=== PATIENT | female | born 1990 | race Two or more races ===

== ENCOUNTER → 2022-04-03 | Outpatient (CLI) | payer BC ==
[2022-04-03 10:37] LABS: Basophils # (auto) 0 10 ^3/uL (0-0.2); Basophils % (auto) 0.3 % (0.0-2.0); Eosinophils # (auto) 0.1 10 ^3/uL (0-0.8); Eosinophils % (auto) 1.4 % (0.0-7.0); Hematocrit 38.6 % (36.0-46.0); Hemoglobin 12.9 g/dL (12.2-16.2); Lymphocytes % (auto) 27.1 % (10.0-50.0); Mean Corpuscular Hemoglobin 29.2 pg (28.0-32.0); Mean Corpuscular Hgb Conc. 33.3 g/dL (32.0-36.0); Mean Corpuscular Volume 87.5 fL (80.0-100.0); Monocytes # (auto) 0.3 10 ^3/uL (0-1.3); Monocytes % (auto) 4.3 % (0.0-12.0); Neutrophils # (auto) 4.9 10 ^3/uL (1.6-8.6); Neutrophils % (auto) 66.9 % (37.0-80.0); Red Blood Cells 4.41 10^6/uL (4.0-5.20); Red Cell Distribution Width 14.7 % (11.8-14.3); White Blood Cell 7.3 10^3/uL (4.4-10.8)
[2022-04-03 10:55] LABS: Amphetamine Screen, Urine NEGATIVE (NEGATIVE); Barbiturate Scree,Urine NEGATIVE (NEGATIVE); Benzodiazephine Screen, Urine NEGATIVE (NEGATIVE); Cannabinoid Screen, Urine POSITIVE (NEGATIVE); Cocaine Screen, Urine NEGATIVE (NEGATIVE); Opiate Scree,Urine NEGATIVE (NEGATIVE); Phencyclidine Screen, Urine NEGATIVE (NEGATIVE)
[2022-04-04 07:06] LABS: RPR Non Reactive (Non Reactive)
== END | disposition home or self-care (01) ==
LOC: LAB 09:54
PROVIDERS: ATTEND Obstetrics & Gynecology Obstetrics
DX: Z34.80 Encounter for supervision of other normal pregnancy, unspecified trimester (principal); Z31.430 Encounter of female for testing for genetic disease carrier status for procreative management; Z36.0 Encounter for antenatal screening for chromosomal anomalies; N39.0 Urinary tract infection, site not specified
CPT/HCPCS: 36415; 80307; 83036; 84112; 84144; 84702; 85025; 86592; 86703; 86762; 86850; 86900; 86901; 87086; 87340

== ENCOUNTER → 2022-07-15 | Outpatient (CLI) | payer BC ==
[2022-07-15 07:50] LABS: Basophils # (auto) 0 10 ^3/uL (0-0.2); Basophils % (auto) 0.3 % (0.0-2.0); Eosinophils # (auto) 0.1 10 ^3/uL (0-0.8); Eosinophils % (auto) 0.7 % (0.0-7.0); Hematocrit 36.1 % (36.0-46.0); Hemoglobin 11.8 g/dL (12.2-16.2); Lymphocytes # (auto) 1.7 10 ^3/uL (0.4-5.4); Lymphocytes % (auto) 16.9 % (10.0-50.0); Mean Corpuscular Hemoglobin 29.2 pg (28.0-32.0); Mean Corpuscular Hgb Conc. 32.8 g/dL (32.0-36.0); Monocytes # (auto) 0.6 10 ^3/uL (0-1.3); Monocytes % (auto) 5.5 % (0.0-12.0); Neutrophils # (auto) 7.7 10 ^3/uL (1.6-8.6); Neutrophils % (auto) 76.6 % (37.0-80.0); Nucleated Red Blood Cells % 0.1 %; Red Blood Cells 4.05 10^6/uL (4.0-5.20); Red Cell Distribution Width 13.3 % (11.8-14.3); White Blood Cell 10.1 10^3/uL (4.4-10.8)
== END | disposition home or self-care (01) ==
LOC: LAB 07:22
PROVIDERS: ATTEND Obstetrics & Gynecology Obstetrics
DX: O99.810 Abnormal glucose complicating pregnancy (principal); Z3A.00 Weeks of gestation of pregnancy not specified
CPT/HCPCS: 36415; 82951; 85025

== ENCOUNTER → 2022-10-06 | Outpatient (CLI) | payer OTHER ==
[2022-10-06 11:25] LABS: Basophils # (auto) 0 10 ^3/uL (0-0.2); Basophils % (auto) 0.2 % (0.0-2.0); Eosinophils # (auto) 0.1 10 ^3/uL (0-0.8); Hematocrit 34.7 % (36.0-46.0); Hemoglobin 11.9 g/dL (12.2-16.2); Lymphocytes # (auto) 2.2 10 ^3/uL (0.4-5.4); Lymphocytes % (auto) 26.8 % (10.0-50.0); Mean Corpuscular Hemoglobin 29.7 pg (28.0-32.0); Mean Corpuscular Hgb Conc. 34.3 g/dL (32.0-36.0); Mean Corpuscular Volume 86.5 fL (80.0-100.0); Monocytes # (auto) 0.4 10 ^3/uL (0-1.3); Monocytes % (auto) 5.1 % (0.0-12.0); Neutrophils # (auto) 5.5 10 ^3/uL (1.6-8.6); Neutrophils % (auto) 66.9 % (37.0-80.0); Red Blood Cells 4.01 10^6/uL (4.0-5.20); Red Cell Distribution Width 14.5 % (11.8-14.3); White Blood Cell 8.3 10^3/uL (4.4-10.8)
[2022-10-07 08:06] LABS: RPR Non Reactive (Non Reactive)
== END | disposition home or self-care (01) ==
LOC: LAB 11:12
PROVIDERS: ATTEND Obstetrics & Gynecology
DX: Z34.80 Encounter for supervision of other normal pregnancy, unspecified trimester (principal); Z3A.00 Weeks of gestation of pregnancy not specified
CPT/HCPCS: 36415; 84112; 85025; 86592

== ENCOUNTER 2022-10-10 11:47 | Observation (INO) | payer OTHER ==
[2022-10-10] MEDS ORDERED: PREN-96 PO (12:47)
== END 2022-10-10 13:22 | disposition home or self-care (01) ==
LOC: LDRP 11:47
PROVIDERS: ADMIT Obstetrics & Gynecology; ATTEND Obstetrics & Gynecology
DX: O24.419 Gestational diabetes mellitus in pregnancy, unspecified control (principal); Z3A.37 37 weeks gestation of pregnancy
CPT/HCPCS: 59025; 81002; 82962; G0378

== ENCOUNTER 2022-10-15 09:22 | Observation (INO) | payer OTHER ==
[~2022-10-15 09:22] MED LIST: PREN-96 PO
[2022-10-15] MEDS ORDERED: METF-370 PO (10:32)
== END 2022-10-15 10:47 | disposition home or self-care (01) ==
LOC: UNDOADMOB 09:22 → LDRP 09:22
PROVIDERS: ADMIT Obstetrics & Gynecology; ATTEND Obstetrics & Gynecology
DX: O24.415 Gestational diabetes mellitus in pregnancy, controlled by oral hypoglycemic drugs (principal); O26.893 Other specified pregnancy related conditions, third trimester; R10.2 Pelvic and perineal pain; Z3A.38 38 weeks gestation of pregnancy; Z79.84 Long term (current) use of oral hypoglycemic drugs
CPT/HCPCS: 59025; 76818; 81002; 82948; 82962; 94760; G0378

== ENCOUNTER 2022-10-20 08:55 | Observation (INO) | payer OTHER ==
[~2022-10-20 08:55] MED LIST changes: +METF-370 PO
== END 2022-10-20 12:13 | disposition home or self-care (01) ==
LOC: UNDOADMOB 10:42 → LDRP 10:42
PROVIDERS: ADMIT Obstetrics & Gynecology; ATTEND Obstetrics & Gynecology
DX: O24.415 Gestational diabetes mellitus in pregnancy, controlled by oral hypoglycemic drugs (principal); Z79.84 Long term (current) use of oral hypoglycemic drugs; Z3A.39 39 weeks gestation of pregnancy
CPT/HCPCS: 59025; 76818; 81002; 82948; 82962; G0378

== ENCOUNTER 2022-10-23 07:43 | Inpatient (IN) | payer OTHER ==
[~2022-10-23] VITALS: Ht 170.2 cm; Wt 117.5 kg
[2022-10-23] MEDS ORDERED: PROMETHAZINE HCL 25 MG/ML 1ML IV PRN (10:45)
[2022-10-23] MEDS ORDERED: miSOPROStol 50 MCG per PRE-CUT 1/2 TAB PO PRN (10:45)
[2022-10-23] MEDS ORDERED: WITCH HAZEL-GLYCERIN PAD TOP PRN (10:45)
[2022-10-23] MEDS ORDERED: BUTORPHANOL TARTRATE 2 MG/1 ML VIAL IV PRN ×2 (10:45)
[2022-10-23] MEDS ORDERED: DERMOPLAST 60ML BOTTLE TOP PRN (10:45)
[2022-10-23] MEDS ORDERED: PHISODERM TOP SOLN 240ML BTL TOP PRN (10:45)
[2022-10-23] MEDS ORDERED: LIDOCAINE 2%HCL (LOCAL ANESTH.) INJ 20ML MDV IJ PRN (10:45)
[2022-10-23 11:16] LABS: Basophils # (auto) 0 10 ^3/uL (0-0.2); Basophils % (auto) 0.3 % (0.0-2.0); Eosinophils # (auto) 0.1 10 ^3/uL (0-0.8); Eosinophils % (auto) 1.1 % (0.0-7.0); Hematocrit 34.9 % (36.0-46.0); Lymphocytes % (auto) 26.3 % (10.0-50.0); Mean Corpuscular Hemoglobin 29.9 pg (28.0-32.0); Mean Corpuscular Hgb Conc. 34.3 g/dL (32.0-36.0); Mean Corpuscular Volume 86.9 fL (80.0-100.0); Monocytes # (auto) 0.3 10 ^3/uL (0-1.3); Monocytes % (auto) 4.2 % (0.0-12.0); Neutrophils # (auto) 5.1 10 ^3/uL (1.6-8.6); Neutrophils % (auto) 68.1 % (37.0-80.0); Red Blood Cells 4.02 10^6/uL (4.0-5.20); Red Cell Distribution Width 14.9 % (11.8-14.3); White Blood Cell 7.6 10^3/uL (4.4-10.8)
[2022-10-23 11:21] LABS: Urine Bacteria NONE SEEN /hpf (None Seen); Urine Blood Negative /uL (Negative); Urine Specific Gravity 1.008 (1.001-1.035); Urine WBC 12 /hpf (0 - 5)
[2022-10-23 11:23] LABS: INR 0.87 (0.9-1.15); Partial Thromboplastin Time 26.9 sec (24.6-33.4)
[2022-10-23 11:45] LABS: Alcohol, Urine < 3.0 mg/dL (0-10); Amphetamine Screen, Urine NEGATIVE (NEGATIVE); Barbiturate Scree,Urine NEGATIVE (NEGATIVE); Benzodiazephine Screen, Urine NEGATIVE (NEGATIVE); Cannabinoid Screen, Urine POSITIVE (NEGATIVE); Cocaine Screen, Urine NEGATIVE (NEGATIVE)
[2022-10-23] MEDS: LACTATED RINGER'S 1,000 ML IV SCH ×2 (11:45→20:19)
[2022-10-23 11:49] LABS: Potassium 3.8 mmol/L (3.5-5.1)
[2022-10-23 11:52] LABS: Opiate Scree,Urine NEGATIVE (NEGATIVE); Phencyclidine Screen, Urine NEGATIVE (NEGATIVE)
[2022-10-23] MEDS ORDERED: PENICILLIN G POT 5MIL/D5 50ML 50 ML IV ONE (12:00)
[2022-10-23 12:11] LABS: Albumin 2.8 g/dL (3.4-5.0); Bilirubin, Total 0.3 mg/dL (0.2-1.0); Calcium 8.6 mg/dL (8.5-10.1); Total Protein 7.1 g/dL (6.4-8.2)
[2022-10-23] MEDS ORDERED: ACCU-CHEK COMFORT CURVE STRIP VI SCH (13:00)
[2022-10-23] MEDS ORDERED: ePHEDrine SULFATE 50 MG/ML AMP IV ONE (15:45)
[2022-10-23] MEDS ORDERED: ROPIVACAINE HCL 200 ML EPI SCH ×2 (15:45→22:45)
[2022-10-23] MEDS ORDERED: NALOXONE HCL 0.4 MG/ML VIAL IV ONE (15:45)
[2022-10-23] MEDS ORDERED: LACTATED RINGER'S 1,000 ML IV ONE (15:45)
[2022-10-23] MEDS: PENICILLIN G POTASSIUM 2,500,000 UNITS in D5W 5% 50 ML IV SCH ×2 (16:19→20:19)
[2022-10-23] MEDS ORDERED: LACT. RINGERS/OXYTOCIN 20UNITS 500 ML IV ONE ×2 (18:00→18:30)
[2022-10-23] MEDS ORDERED: TERBUTALINE SULFATE 1 MG/ML 1ML VIAL SC PRN (18:00)
[2022-10-23] MEDS ORDERED: LACT. RINGERS/OXYTOCIN 20UNITS 1,000 ML IV SCH (18:00)
[2022-10-24] MEDS: PENICILLIN G POTASSIUM 2,500,000 UNITS in D5W 5% 50 ML IV SCH ×2
[2022-10-24] MEDS ORDERED: ceFAZolin 2 GM/D5W100ml 100 ML IV ONE
[2022-10-24] MEDS ORDERED: METHYLERGONOVINE MALEATE 0.2 MG/ML AMP IM ONE (00:05)
[2022-10-24] MEDS ORDERED: ceFAZolin 1GM/50ML 100 ML IV ONE (00:23)
[2022-10-24] MEDS: ceFAZolin 1GM/50ML 50 ML IV SCH ×4 (00:29→22:31)
[2022-10-24] MEDS ORDERED: ONDANSETRON ODT 4 MG TAB PO PRN (05:00)
[2022-10-24] MEDS ORDERED: ACETAMINOPHEN 325 MG TAB PO PRN (05:00)
[2022-10-24 06:07] LABS: RPR Non Reactive (Non Reactive)
[2022-10-24 07:30] VITALS: BP 117/68
[2022-10-24 11:30] VITALS: BP 133/67
[2022-10-24 15:30] VITALS: BP 104/51
[2022-10-24 19:00] VITALS: BP 136/76
[2022-10-24] MEDS ORDERED: DOCUSATE SOD 100 MG CAP PO SCH (22:00)
[2022-10-24 23:30] VITALS: BP 126/72
[2022-10-25] MEDS ORDERED: IBUPROFEN 800 MG TAB PO PRN (03:00)
[2022-10-25 03:09] VITALS: BP 96/51
[2022-10-25 07:03] VITALS: BP 133/74
== END 2022-10-25 01:11 | disposition home or self-care (01) | DRG 807 ==
LOC: LDRP 09:00 → OBSVTOIN 10:29 → LDRP 10:30
PROVIDERS: ADMIT Obstetrics & Gynecology; ATTEND Obstetrics & Gynecology
PROC: 10E0XZZ Delivery of Products of Conception, External Approach (ICD-10-PCS; principal; 2022-10-24)
PROC: 3E0R3BZ Introduction of Anesthetic Agent into Spinal Canal, Percutaneous Approach (ICD-10-PCS; 2022-10-24)
PROC: 00HU33Z Insertion of Infusion Device into Spinal Canal, Percutaneous Approach (ICD-10-PCS; 2022-10-24)
PROC: 10907ZC Drainage of Amniotic Fluid, Therapeutic from Products of Conception, Via Natural or Artificial Opening (ICD-10-PCS; 2022-10-24)
PROC: 3E0DXGC Introduction of Other Therapeutic Substance into Mouth and Pharynx, External Approach (ICD-10-PCS; 2022-10-24)
PROC: 0UQMXZZ Repair Vulva, External Approach (ICD-10-PCS; 2022-10-24)
DX: O24.425 Gestational diabetes mellitus in childbirth, controlled by oral hypoglycemic drugs (principal); Z37.0 Single live birth; O71.82 Other specified trauma to perineum and vulva; O99.824 Streptococcus B carrier state complicating childbirth; Z3A.39 39 weeks gestation of pregnancy; Z20.822 Contact with and (suspected) exposure to COVID-19
CPT/HCPCS: 36415; 59025; 59409; 62282; 76818; 80053; 80307; 81001; 81002; 82948; 82962; 85025; 85610; 85730; 86592; 86762; 86850; 86900; 86901; 87340; 87426; 94760; 96360; 96361; 96365; 96372; G0378; J0690; J2540; J2590; J7060

== ENCOUNTER → 2024-09-27 | Outpatient (CLI) | payer SELFPAY | END | disposition home or self-care (01) | LOC: LAB 09:55 | PROVIDERS: ATTEND Obstetrics & Gynecology | DX: O23.40 Unspecified infection of urinary tract in pregnancy, unspecified trimester (principal); Z36.0 Encounter for antenatal screening for chromosomal anomalies; Z31.430 Encounter of female for testing for genetic disease carrier status for procreative management; N39.0 Urinary tract infection, site not specified; Z3A.00 Weeks of gestation of pregnancy not specified | CPT/HCPCS: 82951 ==

== ENCOUNTER 2024-10-02 07:44 | Observation (INO) | payer SELFPAY ==
--- NOTE | 2024-10-02 10:42 | DVH ---
BIOPHYSICAL PROFILE HISTORY: GDMA1, AMA TECHNIQUE: Multiple transabdominal real-time grayscale sonographic images through the gravid uterus of the fetus with duplex Doppler color flow and M-mode spectral analysis FINDINGS: BIOPHYSICAL PROFILE: breathing score: 2 movement score: 2 tone score: 2 Quantitative MIRTHA score: 2 (MIRTHA: 17.9 Cm.) Total score: 8 The cervix not well visualized. Single live fetus in cephalic presentation. heart rate 134 beats per minute. Posterior placenta without previa or abruption IMPRESSION: Biophysical profile score: 8
[2024-10-02] MEDS ORDERED: FERR-7 PO (10:43)
--- NOTE | 2024-10-02 11:07 | DVHDS2 ---
Physician Discharge Progress N Final Diagnosis: GDMA1, AMA Operations or Procedures: Operations or Procedures NST/BPP/MIRTHA all WNL Condition on Discharge: Stable Disposition: Home Discharge Instructions: Diet: Consistent carbohydrate Activity: No Restrictions, As Tolerated Follow Up/Referral: as scheduled Medications: N/A Follow Up Care: Discharge Statement: "Patient was advised to return to the ER or call 911 if any headaches, dizziness, shortness of breath, chest pain, abdominal pain, bleeding, fevers, or worsening of medical condition. Patient was counseled about treatment plan, medications, possible side effects, patientverbalized understanding. All questions were answered to the best of my ability. This discharge took greater then 30 minutes in planning, reviewing documentation, counseling the patient, and discussing with other team members." Visit Coding OBGYN Date of Service: Oct 02, 2024 Billing Provider: SONNY GROSS DO CLINICAL REVIEWER Common Visit Codes: 20300-SXU/OBS SAME DATE (MOD) CLINICAL REVIEWER Procedure Codes: 21105-29- NON-STRESS TEST SONNY GROSS DO Oct 02, 2024 11:07
== END 2024-10-02 11:00 | disposition home or self-care (01) ==
LOC: UNDOADMOB 09:58 → LDRP 09:58 → UNDODISOB 11:00
PROVIDERS: ADMIT Obstetrics & Gynecology; ATTEND Obstetrics & Gynecology
DX: O24.419 Gestational diabetes mellitus in pregnancy, unspecified control (principal); O09.513 Supervision of elderly primigravida, third trimester; Z98.890 Other specified postprocedural states; Z79.899 Other long term (current) drug therapy; Z3A.33 33 weeks gestation of pregnancy
CPT/HCPCS: 59025; 76818; 81002; 82948; 82962; 94760; G0378

== ENCOUNTER 2024-10-09 08:55 | Observation (INO) | payer SELFPAY ==
[~2024-10-09 08:55] MED LIST changes: +FERR-7 PO; -METF-370 PO
--- NOTE | 2024-10-09 10:19 | DVHDS2 ---
Physician Discharge Progress N Final Diagnosis: GDM, AMA Secondary Diagnosis: Encounter for surveillance Operations or Procedures: Operations or Procedures NST/BPP/MIRTHA Accucheck all WNL Condition on Discharge: Stable Disposition: Home Discharge Instructions: Diet: Consistent carbohydrate Activity: Light activity Follow Up/Referral: As scheduled Medications: N/A Follow Up Care: Discharge Statement: "Patient was advised to return to the ER or call 911 if any headaches, d izziness, shortness of breath, chest pain, abdominal pain, bleeding, fevers, or worsening of medical condition. Patient was counseled about treatment plan, medications, possible side effects, patientverbalized understanding. All questions were answered to the best of my ability. This discharge took greater then 30 minutes in planning, reviewing documentation, counseling the patient, and discussing with other team members." Visit Coding OBGYN Date of Service: Oct 09, 2024 Billing Provider: SONNY GROSS DO SUSTAINABLE AGRICULTURE SPECIALIST Common Visit Codes: 57544-TSJ/OBS SAME DATE (MOD), CONSULTATION ONLY SONNY GROSS DO Oct 09, 2024 10:19
--- NOTE | 2024-10-09 10:30 | DVH ---
BIOPHYSICAL PROFILE HISTORY: GDMA1/AMA TECHNIQUE: Multiple transabdominal real-time grayscale sonographic images through the gravid uterus of the fetus with duplex Doppler color flow and M-mode spectral analysis FINDINGS: BIOPHYSICAL PROFILE: breathing score: 2 movement score: 2 tone score: 2 Quantitative MIRTHA score: 2 (MIRTHA: 12.6 Cm.) Total score: 8 The cervix not well visualized. Single live fetus in cephalic presentation. heart rate 132 beats per minute. Grade 2 posterior placenta without previa or abruption IMPRESSION: Biophysical profile score: 8
== END 2024-10-09 10:25 | disposition home or self-care (01) ==
LOC: LDRP 08:55 → UNDOADMOB 08:55 → LDRP 09:08 → UNDODISOB 10:25
PROVIDERS: ADMIT Obstetrics & Gynecology; ATTEND Obstetrics & Gynecology
DX: O24.419 Gestational diabetes mellitus in pregnancy, unspecified control (principal); O09.513 Supervision of elderly primigravida, third trimester; Z98.890 Other specified postprocedural states; Z79.899 Other long term (current) drug therapy; Z3A.34 34 weeks gestation of pregnancy
CPT/HCPCS: 59025; 76818; 81002; 82948; 94760; G0378

== ENCOUNTER 2024-10-18 06:31 | Observation (INO) | payer SELFPAY ==
--- NOTE | 2024-10-18 10:19 | DVH ---
Procedure: US BIOPHYSICAL PROFILE 10/18/2024 09:48 AM Indication: GDMA1, AMA Comparison: US BIOPHYSICAL PROFILE on DOS: 10/09/24, US BIOPHYSICAL PROFILE on DOS: 10/02/24, US BIOPHY SICAL PROFILE on DOS: 10/23/22 Technique: Sonogram of gravid uterus utilizing grayscale and color techniques. FINDINGS: Single living intrauterine gestation. Presentation: Cephalic Placenta: Fundal and posterior without evidence of previa or abruption heart rate: 136 bpm MIRTHA: 13.6 cm, DVP: 7.1 cm Maternal cervix: Not visualized Biophysical Profile: breathing score: 2 movement score: 2 tone: 2 Quantitative MIRTHA score: 2 Total score: 8/8 IMPRESSION: 1. Single living as above. 2. Biophysical profile score: 8/8.
--- NOTE | 2024-10-18 13:53 | DVHDS2 ---
Physician Discharge Progress N Final Diagnosis: gdm 36wks Operations or Procedures: Operations or Procedures nst,delvino 36wks Condition on Discharge: Good Disposition: Home Discharge Instructions: Diet: Consistent carbohydrate Activity: No Restrictions, As Tolerated Medications: na Follow Up Care: Specialist: 1w Discharge Statement: "Patient was advised to return to the ER or call 911 if any headaches, dizziness, shortness of breath, chest pain, abdominal pain, bleeding, fevers, or worsening of medical condition. Patient was counseled about treatment plan, medications, possible side effects, patientverbalized understanding. All questions were answered to the best of my ability. This discharge took greater then 30 minutes in planning, reviewing docum entation, counseling the patient, and discussing with other team members." Visit Coding OBGYN Date of Service: Oct 18, 2024 Billing Provider: NEIL DAMICO DO POST HOLE DIGGING MACHINE OPERATOR Common Visit Codes: 60572-QJE/OBS SAME DATE (HIGH) POST HOLE DIGGING MACHINE OPERATOR Procedure Codes: 76670-09- NON-STRESS TEST NEIL DAMICO DO Oct 18, 2024 13:52
== END 2024-10-18 10:45 | disposition home or self-care (01) ==
LOC: LDRP 08:54 → UNDOADMOB 08:54 → LDRP 09:11
PROVIDERS: ADMIT Obstetrics & Gynecology; ATTEND Obstetrics & Gynecology
DX: O24.419 Gestational diabetes mellitus in pregnancy, unspecified control (principal); Z3A.36 36 weeks gestation of pregnancy; Z79.899 Other long term (current) drug therapy
CPT/HCPCS: 76818; 81002; 82948; 82962; 94760; G0378; 59025; 76819

== ENCOUNTER 2024-10-25 07:14 | Observation (INO) | payer SELFPAY ==
--- NOTE | 2024-10-25 10:00 | DVH ---
BIOPHYSICAL PROFILE HISTORY: GDMA1, AMA Comparison Study: 10/18/2024 TECHNIQUE: Multiple real-time grayscale sonographic images through the gravid uterus of the fetus wi th duplex Doppler color flow and M-mode spectral analysis FINDINGS: BIOPHYSICAL PROFILE: breathing score: 2 movement score: 2 tone score: 2 Quantitative MIRTHA score: 2 (MIRTHA: 22.1 Cm.) Total score: 8 The cervix is not visualized Single live fetus in cephalic presentation. heart rate 136 beats per minute. Grade 2, fundal placenta without previa or abruption IMPRESSION: Biophysical profile score: 8 MIRTHA measures 22.1 cm.
--- NOTE | 2024-10-25 13:09 | DVHDS2 ---
Physician Discharge Progress N Final Diagnosis: gdm Operations or Procedures: Operations or Procedures nst,sono Condition on Discharge: Good Disposition: Home Discharge Instructions: Diet: Consistent carbohydrate Activity: No Restrictions, As Tolerated Medications: na Follow Up Care: Specialist: 3d Discharge Statement: "Patient was advised to return to the ER or call 911 if any headaches, dizziness, shortness of breath, chest pain, abdominal pain, bleeding, fevers, or worsening of medical condition. Patient was counseled about treatment plan, medications, possible side effects, patientverbalized understanding. All questions were answered to the best of my ability. This discharge took greater then 30 minutes in planning, reviewing documentation, counseling the patient, and discussing with other team members." Visit Coding OBGYN Date of Service: Oct 24, 2024 Billing Provider: NEIL DAMICO DO CERTIFIED ADDICTION COUNSELOR Common Visit Codes: [id number] INP/OBS CARE (HIGH) CERTIFIED ADDICTION COUNSELOR Procedure Codes: 98617-25- NON-STRESS TEST NEIL DAMICO DO Oct 25, 2024 13:09
== END 2024-10-25 10:23 | disposition home or self-care (01) ==
LOC: LDRP 09:02 → UNDOADMOB 09:02 → LDRP 09:10 → UNDODISOB 10:23
PROVIDERS: ADMIT Obstetrics & Gynecology; ATTEND Obstetrics & Gynecology
DX: O24.419 Gestational diabetes mellitus in pregnancy, unspecified control (principal); Z98.890 Other specified postprocedural states; Z79.899 Other long term (current) drug therapy; Z3A.37 37 weeks gestation of pregnancy
CPT/HCPCS: 76818; 81002; 82948; 82962; 94760; G0378; 59025

== ENCOUNTER → 2024-10-25 | Outpatient (CLI) | payer SELFPAY ==
[2024-10-25 11:49] LABS: Basophils # (auto) 0 10 ^3/uL (0-0.2); Basophils % (auto) 0.3 % (0.0-2.0); Eosinophils # (auto) 0.1 10 ^3/uL (0-0.8); Eosinophils % (auto) 0.8 % (0.0-7.0); Hematocrit 35.9 % (36.0-46.0); Hemoglobin 11.9 g/dL (12.2-16.2); Lymphocytes # (auto) 2.1 10 ^3/uL (0.4-5.4); Lymphocytes % (auto) 23.9 % (10.0-50.0); Mean Corpuscular Hemoglobin 28.9 pg (28.0-32.0); Mean Corpuscular Hgb Conc. 33.2 g/dL (32.0-36.0); Mean Corpuscular Volume 87.1 fL (80.0-100.0); Monocytes # (auto) 0.5 10 ^3/uL (0-1.3); Monocytes % (auto) 5.3 % (0.0-12.0); Neutrophils # (auto) 6.2 10 ^3/uL (1.6-8.6); Neutrophils % (auto) 69.7 % (37.0-80.0); Platelet Count (auto) 238 10^3/uL (140-450); Red Blood Cells 4.12 10^6/uL (4.0-5.20); Red Cell Distribution Width 14.6 % (11.8-14.3); White Blood Cell 8.9 10^3/uL (4.4-10.8)
[2024-10-25 12:04] LABS: Alanine Aminotransferase 29 U/L (7-40); Albumin 4.5 g/dL (3.2-4.8); Anion Gap 8 (5-15); Aspartate Aminotransferase 20 U/L (13-40); BUN/Creatinine Ratio 16.7 (10.0-20.0); Bilirubin, Total 0.3 mg/dL (0.2-1.0); Blood Urea Nitrogen 11 mg/dL (9-23); Calcium 9.5 mg/dL (8.7-10.4); Carbon Dioxide 24 mmol/L (20-31); Chloride 104 mmol/L (98-107); Glucose 85 mg/dL (74-106); Potassium 4.3 mmol/L (3.5-5.1); Sodium 136 mmol/L (136-145); Total Protein 7.2 g/dL (5.7-8.2)
[2024-10-25 12:05] LABS: Alkaline Phosphatase 128 U/L (46-116)
== END | disposition home or self-care (01) ==
LOC: LAB 11:23
PROVIDERS: ATTEND Obstetrics & Gynecology
DX: Z34.80 Encounter for supervision of other normal pregnancy, unspecified trimester (principal); Z3A.00 Weeks of gestation of pregnancy not specified
CPT/HCPCS: 36415; 80053; 83036; 85025

== ENCOUNTER 2024-11-01 07:27 | Observation (INO) | payer SELFPAY ==
--- NOTE | 2024-11-01 11:04 | DVH ---
CLINICAL HISTORY: Gestational diabetes. COMPARISON: US BIOPHYSICAL PROFILE on DOS: 10/25/24, US BIOPHYSICAL PROFILE on DOS: 10/18/24, US BIOPHYS ICAL PROFILE on DOS: 10/09/24 TECHNIQUE: biophysical profile was performed. Transabdominal sonographic images of the fetus we re obtained. FINDINGS: The fetus is in cephalic position. heart rate measures 125 BPM. Amniotic fluid index measures 13.2 cm. The placenta is fundal in position. BPP profile is an overall score of 8/8, with 2/2 points for breathing, with at least one episode of breathing over a 30 second duration during a 30 minute observation, 2/2 points for m ovements, with 3 or more discrete body or limb movements, 2/2 points for tone, with one or more episodes of extremity extension with return to flexion, or opening and closing of hand, and 2/ 2 points for amniotic fluid, with at least 1 pocket of amniotic fluid that measures 2 cm in 2 perpend icular planes. IMPRESSION: BPP score of 8/8.
--- NOTE | 2024-11-01 11:55 | DVHDS2 ---
Physician Discharge Progress N Final Diagnosis: GDM Operations or Procedures: Operations or Procedures NST/BPP/MIRTHA Accucheck ALL WNL Condition on Discharge: Stable Disposition: Home Discharge Instructions: Diet: Consistent carbohydrate Activity: No Restrictions, As Tolerated Medications: N/A Follow Up Care: Discharge Statement: "Patient was advised to return to the ER or call 911 if any headaches, dizziness, shortness of breath, chest pain, abdominal pain, bleeding, fevers, or worsening of medical condition. Patient was counseled about treatment plan, medications, possible side effects, patientverbalized understanding. All questions were answered to the best of my ability. This discharge took greater then 30 minutes in planning, reviewing documentation, counseling the patient, and discussing with other team members." Visit Coding OBGYN Date of Service: Nov 01, 2024 Billing Provider: SONNY GROSS DO SPORTS [employer]PAREL INTERNS[employer]IP Common Visit Codes: [id number]-ZRB/OBS SAME DATE (HIGH) [employer] Procedure Codes: 97240-62- NON-STRESS TEST SONNY GROSS DO Nov 01, 2024 11:55
== END 2024-11-01 11:24 | disposition home or self-care (01) ==
LOC: LDRP 09:40
PROVIDERS: ADMIT Obstetrics & Gynecology; ATTEND Obstetrics & Gynecology
DX: O24.419 Gestational diabetes mellitus in pregnancy, unspecified control (principal); Z3A.38 38 weeks gestation of pregnancy; Z79.899 Other long term (current) drug therapy
CPT/HCPCS: 76818; 81002; 82948; 82962; G0378; 59025; 76819

== ENCOUNTER 2024-11-08 09:07 | Observation (INO) | payer SELFPAY ==
--- NOTE | 2024-11-08 10:26 | DVH ---
BIOPHYSICAL PROFILE HISTORY: GDMA1 TECHNIQUE: Multiple transabdominal real-time grayscale sonographic images through the gravid uterus of the fetus with duplex Doppler color flow and M-mode spectral analysis FINDINGS: BIOPHYSICAL PROFILE: breathing score: 2 movement score: 2 tone score: 2 Quantitative MIRTHA score: 2 (MIRTHA: 19.7 Cm.) Total score: 8 Single live fetus in cephalic presentation. heart rate 134 beats per minute. Grade 2 fundal placenta without previa or abruption IMPRESSION: Biophysical profile score: 8/8
--- NOTE | 2024-11-08 12:38 | DVHDS2 ---
Physician Discharge Progress N Final Diagnosis: gdm Operations or Procedures: Operations or Procedures nst,sono 39wks Condition on Discharge: Good Disposition: Home Discharge Instructions: Diet: Consistent carbohydrate Activity: No Restrictions, As Tolerated Medications: na Follow Up Care: Specialist: 2d for induction Discharge Statement: "Patient was advised to return to the ER or call 911 if any headaches, dizziness, shortness of breath, chest pain, abdominal pain, bleeding, fevers, or worsening of medical condition. Patient was counseled about treatment plan, medications, possible side effects, patientverbalized understanding. All questions were answered to the best of my ability. This discharge took greater then 30 minutes in planning, reviewing documentation, counseling the patient, and discussing with other team members." Visit Coding OBGYN Date of Service: Nov 08, 2024 Billing Provider: NEIL DAMICO DO RIPPER OPERATOR Common Visit Codes: [id number] INP/OBS CARE (HIGH) RIPPER OPERATOR Procedure Codes: 56384-34- NON-STRESS TEST NEIL DAMICO DO Nov 08, 2024 12:38
== END 2024-11-08 10:36 | disposition home or self-care (01) ==
LOC: LDRP 09:07
PROVIDERS: ADMIT Obstetrics & Gynecology; ATTEND Obstetrics & Gynecology
DX: O24.419 Gestational diabetes mellitus in pregnancy, unspecified control (principal); Z3A.39 39 weeks gestation of pregnancy; Z79.899 Other long term (current) drug therapy
CPT/HCPCS: 76819; 81002; 82948; 82962; 94760; G0378

== ENCOUNTER 2024-11-11 12:00 | Inpatient (IN) | payer OTHER, SELFPAY ==
[~2024-11-11] VITALS: Ht 167.6 cm; Wt 123.4 kg
[2024-11-11] MEDS ORDERED: LIDOCAINE 2%HCL (LOCAL ANESTH.) INJ 20ML MDV IJ PRN (12:15)
[2024-11-11] MEDS ORDERED: BUTORPHANOL TARTRATE 2 MG/1 ML VIAL IV PRN ×2 (12:15)
[2024-11-11 13:00] LABS: Urine Bacteria None Seen /hpf (None Seen)
[2024-11-11 13:14] LABS: Basophils # (auto) 0 10 ^3/uL (0-0.2); Basophils % (auto) 0.3 % (0.0-2.0); Eosinophils # (auto) 0 10 ^3/uL (0-0.8); Eosinophils % (auto) 0.5 % (0.0-7.0); Hematocrit 34.4 % (36.0-46.0); Hemoglobin 11.8 g/dL (12.2-16.2); Lymphocytes # (auto) 1.8 10 ^3/uL (0.4-5.4); Lymphocytes % (auto) 21.1 % (10.0-50.0); Mean Corpuscular Hemoglobin 29.8 pg (28.0-32.0); Mean Corpuscular Hgb Conc. 34.4 g/dL (32.0-36.0); Mean Corpuscular Volume 86.7 fL (80.0-100.0); Monocytes # (auto) 0.4 10 ^3/uL (0-1.3); Monocytes % (auto) 4.3 % (0.0-12.0); Neutrophils # (auto) 6.2 10 ^3/uL (1.6-8.6); Neutrophils % (auto) 73.8 % (37.0-80.0); Nucleated Red Blood Cells % 0.1 %; Platelet Count (auto) 233 10^3/uL (140-450); Red Blood Cells 3.97 10^6/uL (4.0-5.20); Red Cell Distribution Width 14.9 % (11.8-14.3); White Blood Cell 8.5 10^3/uL (4.4-10.8)
[2024-11-11 13:27] LABS: Cannabinoid Screen, Urine Pos (NEGATIVE)
[2024-11-11 13:29] LABS: Albumin 4.3 g/dL (3.2-4.8); Anion Gap 9 (5-15); Aspartate Aminotransferase 31 U/L (13-40); BUN/Creatinine Ratio 13.3 (10.0-20.0); Bilirubin, Total 0.3 mg/dL (0.2-1.0); Calcium 9.2 mg/dL (8.7-10.4); Carbon Dioxide 22 mmol/L (20-31); Chloride 107 mmol/L (98-107); Glucose 105 mg/dL (74-106); Sodium 138 mmol/L (136-145); Total Protein 6.9 g/dL (5.7-8.2)
[2024-11-11] MEDS: miSOPROStol 50 MCG per PRE-CUT 1/2 TAB PO PRN (13:33)
[2024-11-11 13:34] LABS: Amphetamine Screen, Urine Neg (NEGATIVE); Barbiturate Scree,Urine Neg (NEGATIVE); Benzodiazephine Screen, Urine Neg (NEGATIVE); Cocaine Screen, Urine Neg (NEGATIVE); Opiate Scree,Urine Neg (NEGATIVE); Phencyclidine Screen, Urine Neg (NEGATIVE)
[2024-11-11] MEDS: LACTATED RINGER'S 1,000 ML IV SCH ×2 (13:34→17:15)
[2024-11-11 13:35] LABS: Urine Blood Negative /uL (Negative); Urine Clarity Turbid (Clear); Urine Color Light-Yellow (Yellow); Urine Mucus FEW (None Seen); Urine Protein, UAD Negative (Negative); Urine Specific Gravity 1.018 (1.001-1.035); Urine Squamous Epithelial Cell MOD /hpf (<5); Urine Urobilinogen Normal (Negative); Urine WBC 4 /HPF (0-5); Urine pH 6.5 (5.0-9.0)
[2024-11-11 13:35] LABS: Alanine Aminotransferase 54 U/L (7-40); Alkaline Phosphatase 162 U/L (46-116); Blood Urea Nitrogen 8 mg/dL (9-23)
[2024-11-11 13:40] LABS: INR 0.91 (0.9-1.15); Partial Thromboplastin Time 27.6 SEC (24.5-34.5); Prothrombin Time 9.7 sec (9.3-11.8)
--- NOTE | 2024-11-11 15:28 | DVHHP2 ---
OB CC & HPI Date Date of Admission: Nov 11, 2024 Patient Identification: : 3 Para: 2 EDC: Nov 14, 2024 EGA: 39.4 Chief Complaints: Reason for admission: induction of labor History of Present Complaints 34y IUP 39+wk, AMA, GDMA2 on Metformin for the last 2 wk, Morbid Obesity -scheduled induction due to GDMA2 Denies any pains, no vaginal bleeding or leaking of fluid EFW 8lb 6oz last week in clinic by US GBS neg Past Medical History Cardiac: No pertinent Hx Pulmonary: No pertinent Hx Central Nervous System: No pertinent Hx GI: No pertinent Hx Hemotology/Oncology: No pertinent Hx Hepatobiliary: No pertinent Hx Psychiatric: No pertinent Hx Musculoskeletal: No pertinent Hx Rheumotologic: No pertinent Hx Infectious Disease: No peritnent Hx ENT: No pertinent Hx Renal/: No pertinent Hx Endocrine: No pertinent Hx Dermatology: No pertinent Hx Past Surgical History: No pertinent Hx OB History OB History Care: Limited Care Ultrasounds: Normal mid trimester US Obstetrical Complications: Gestational Diabetes Medical Complications: None Allergies: Coded Allergies: Codeine (Verified Allergy, Unknown, 10/18/24) Home Meds Reported Medications Ferrous Sulfate (Iron) 325 Mg Tab, 325 MG PO, TAB 10/02/24 Vit W/ Ferrous Fumara ( One Daily) Daily Tab, 1 TAB PO DAILY, #90 TAB 3 Refills 10/10/22 Current Medications Current Medications Medications (Trade) Dose Ordered Sig/Rupesh Route PRN Reason Start Time Stop Time Status Last Admin Lactated Ringer's 1,000 ml @ 125 mls/hr Q8H IV 11/11/24 12:15 11/11/24 13:34 Witch Deborah (Tucks) 1 pad PRN PRN TOP PERINEAL AREA DISCOMFORT 11/11/24 12:15 Sodium Lauryl Sulfate (Phisoderm) 240 ml PRN PRN TOP PERINEAL AREA DISCOMFORT 11/11/24 12:15 Benzocaine (Dermoplast) 1 applic PRN PRN TOP PERINEAL AREA DISCOMFORT 11/11/24 12:15 Butorphanol Tartrate (Stadol Injection) 1 mg Q4HPRN PRN IV MODERATE PAIN (4-6 PAIN SCALE) 11/11/24 12:15 Butorphanol Tartrate (Stadol Injection) 2 mg Q4HPRN PRN IV SEVERE PAIN (7-10 PAIN SCALE) 11/11/24 12:15 Misoprostol (Cytotec) 50 mcg Q4HPRN PRN PO CERVICAL RIPENING 11/11/24 12:15 11/11/24 13:33 Lidocaine HCl (Xylocaine) 20 ml ONCE PRN IJ PERINEAL AREA DISCOMFORT 11/11/24 12:15 Family & Social History Family/Social History Blood Type: O+ Rubella: immune RPR/VDRL: Negative GBS Status: Negative HBsAG: Negative Review of Systems Constitutional: No symptom reported Ears, Nose, & Throat: No symptom reported Eyes: No symptom reported Pulmonary/Respiratory: No symptom reported Cardiovascular: No symptom reported Gastrointestinal: No symptom reported Genitourinary: No symptom reported Musculoskeletal: No symptom reported Skin: No symptom reported Psychiatric: No symptom reported Endocrine: No symptom reported Hemotologic/Lymphatic: No symptom reported OB Admission Exam Physical Exam HEENT: NCAT Heart: Rhythm Normal Lungs: Clear Abdomen: Gravid Extremities: Normal Reflexes: Normal Pelvic Exam: RN exam /-2 VTX Heart Rate: 130's Accelerations: Accelerations Present Decelerations: No Decelerations Short Term Variability: Present Senior Security Engineer Variability: Average (6-25) Contractions on Admission: 6-10 Minutes Apart Intensity: Mild OB Plan Plan Admitting Diagnosis: Term IUP 39+ weeks, GDMA2 , Medically indicated Induction of labor GBS negative FHR Categ 1 Plan: Induction Induction Methd: Pitocin protocol, Misoprostol protocol Other Plan: Cytotec, then Pitocin if needed R/B/A of trial of labor d/w patient in view of LGA, EFW approx 8.5 lbs Declined offer for 1' C/Section Risks of shoulder dystocia, nerve injury, clavicular fracture, trauma, asphyxia all d/w pt Indications for C/Section discussed. All questions answered, informed consent obtained. Visit Coding OBGYN Date of Service: Nov 11, 2024 Billing Provider: SONNY GROSS DO CELL ROOM OPERATOR Common Visit Codes: [id number] INP/OBS CARE (HIGH) SONNY GROSS DO Nov 11, 2024 15:28
[2024-11-11] MEDS ORDERED: TERBUTALINE SULFATE 1 MG/ML 1ML VIAL SC PRN (17:15)
[2024-11-11] MEDS: PHISODERM TOP SOLN 240ML BTL TOP PRN (17:24)
[2024-11-11] MEDS: DERMOPLAST 60ML BOTTLE TOP PRN (17:24)
[2024-11-11] MEDS: WITCH HAZEL-GLYCERIN PAD TOP PRN (17:24)
[2024-11-11] MEDS: ACCU-CHEK COMFORT CURVE STRIP VI SCH (17:30)
[2024-11-11] MEDS: LACT. RINGERS/OXYTOCIN 20UNITS 1,000 ML IV SCH (17:30)
--- NOTE | 2024-11-11 20:06 | DVHPN2 ---
OB Labor Progress Note Date and Time Seen Date Seen: Nov 11, 2024 Time Seen: 20:03 Subjective Patient reports: No new complaints Objective Vital Signs Afeb VS stable Monitoring Method Monitoring Method: Internal (AROM clear fluid. IUPC/FSE placed ) Heart Rate Heart Rate Baseline: 130 Heart Rate Variability: Moderate Presence of FHR Accelerations: Yes Presence of FHR Decelerations: Yes Heart Rate Type of Decel: Variable Decelerations, Late Decelerations Contractions Contractions Intensity: Strong Contractions Resting Tone: Relaxed Membranes Membranes: Ruptured Amniotic Fluid Color: Clear Vaginal Exam Vag Exam Deferred: No Vaginal Exam Dilation: 6 Vaginal Exam Effacement: 90 Vaginal Exam Station: -1 Vaginal Exam Presentation: VTX Vaginal Exam Show: None Medications Medications - Pitocin: Yes Medication - Epidural: No Lab Results Lab Results Current Medications Medications (Trade) Dose Ordered Sig/Rupesh Start Time Stop Time Status Last Admin Dose Admin Lactated Ringer's 1,000 ml @ 125 mls/hr Q8H 11/11/24 12:15 11/11/24 17:17 DC 11/11/24 13:34 125 MLS/HR Witch Deborah (Tucks) 1 pad PRN PRN 11/11/24 12:15 11/11/24 17:24 1 PAD Sodium Lauryl Sulfate (Phisoderm) 240 ml PRN PRN 11/11/24 12:15 11/11/24 17:24 240 ML Benzocaine (Dermoplast) 1 applic PRN PRN 11/11/24 12:15 11/11/24 17:24 1 APPLIC Butorphanol Tartrate (Stadol Injection) 1 mg Q4HPRN PRN 11/11/24 12:15 Butorphanol Tartrate (Stadol Injection) 2 mg Q4HPRN PRN 11/11/24 12:15 Misoprostol (Cytotec) 50 mcg Q4HPRN PRN 11/11/24 12:15 11/11/24 13:33 50 MCG Lidocaine HCl (Xylocaine) 20 ml ONCE PRN 11/11/24 12:15 Diagnostic Test (Pha) (Accu-Chek Comfort Curve T) 1 strip Q4HR 11/11/24 17:00 11/11/24 17:30 1 STRIP Lactated Ringer's 1,000 ml @ 125 mls/hr Q8H 11/11/24 17:15 Oxytocin 1,000 ml @ 6 ml/hr Q24H 11/11/24 17:15 11/11/24 17:30 6 ML/HR Terbutaline Sulfate (Brethine Inj) 0.25 mg ONCE PRN 11/11/24 17:15 Oxytocin 500 ml @ 999 mls/hr Q31M ONCE 11/11/24 17:15 11/11/24 17:45 DC Laboratory Tests Test 11/11/24 16:36 11/11/24 12:59 11/11/24 12:45 Range/Units POC Glucose 88 70-106 mg/dl Urine Color Light-yellow Yellow Urine Clarity Turbid H Clear Urine pH 6.5 5.0-9.0 Urine Specific [place] 1.018 1.001-1.035 Urine Protein Negative Negative Urine Ketones Negative Negative Urine Blood Negative Negative /uL Urine Nitrite Negative Negative Urine Bilirubin Negative Negative Urine Urobilinogen Normal Negative mg/dL Urine Leukocyte Esterase Negative Negative /uL Urine RBC 2 0 - 4 /hpf Urine Microscopic WBC 4 0-5 /HPF Urine Squamous Epithelial Cells Mod <5 /hpf Urine Bacteria None seen None Seen /hpf Urine Mucus Few None Seen Urine Glucose Normal Normal mg/dL Urine Opiates Screen Neg NEGATIVE Urine Fentanyl Screen Neg NEGATIVE Urine Barbiturates Screen Neg NEGATIVE Urine Phencyclidine Screen Neg NEGATIVE Urine Amphetamines Screen Neg NEGATIVE Urine Benzodiazepines Screen Neg NEGATIVE Urine Cocaine Screen Neg NEGATIVE Urine Cannabinoids Screen Pos NEGATIVE White Blood Count 8.5 4.4-10.8 10^3/uL Red Blood Count 3.97 L 4.0-5.20 10^6/uL Hemoglobin 11.8 L 12.2-16.2 g/dL Hematocrit 34.4 L 36.0-46.0 % Mean Corpuscular Volume 86.7 80.0-100.0 fL Mean Corpuscular Hemoglobin 29.8 28.0-32.0 pg Mean Corpuscular Hemoglobin Concent 34.4 32.0-36.0 g/dL Red Cell Distribution Width 14.9 H 11.8-14.3 % Platelet Count 233 140-450 10^3/uL Mean Platelet Volume 9.0 6.9-10.8 fL Neutrophils (%) (Auto) 73.8 37.0-80.0 % Lymphocytes (%) (Auto) 21.1 10.0-50.0 % Monocytes (%) (Auto) 4.3 0.0-12.0 % Eosinophils (%) (Auto) 0.5 0.0-7.0 % Basophils (%) (Auto) 0.3 0.0-2.0 % Neutrophils # (Auto) 6.2 1.6-8.6 10 ^3/uL Lymphocytes # (Auto) 1.8 0.4-5.4 10 ^3/uL Monocytes # (Auto) 0.4 0-1.3 10 ^3/uL Eosinophils # (Auto) 0 0-0.8 10 ^3/uL Basophils # (Auto) 0 0-0.2 10 ^3/uL Nucleated Red Blood Cells 0.1 % Prothrombin Time 9.7 9.3-11.8 sec Prothrombin Time INR 0.91 0.9-1.15 Activated Partial Thromboplast Time 27.6 24.5-34.5 SEC Sodium Level 138 136-145 mmol/L Potassium Level 4.0 3.5-5.1 mmol/L Chloride Level 107 98-107 mmol/L Carbon Dioxide Level 22 20-31 mmol/L Anion Gap 9 5-15 Blood Urea Nitrogen 8 L 9-23 mg/dL Creatinine 0.60 0.550-1.02 mg/dL Glomerular Filtration Rate Calc 119 >90 mL/min BUN/Creatinine Ratio 13.3 10.0-20.0 Serum Glucose 105 74-106 mg/dL Calcium Level 9.2 8.7-10.4 mg/dL Total Bilirubin 0.3 0.2-1.0 mg/dL Aspartate Amino Transferase (AST) 31 13-40 U/L Alanine Aminotransferase (ALT) 54 H 7-40 U/L Alkaline Phosphatase 162 H 46-116 U/L Total Protein 6.9 5.7-8.2 g/dL Albumin 4.3 3.2-4.8 g/dL Treponema pallidum Antibody Non-reactive Negative Hepatitis C Antibody Negative Negative HIV (1&2) Antibody Negative Negative Assessment Assessment Term IUP, GDMA2, Induction of labor s/p amniotomy Categ 2 FHR pattern with moderate variability Plan Plan Intrapartum resuscitation methods implemented due to FHR declerations AROM and IUPC/FSE placed. Stop Pitocin Position change and O2 Continue to observe, making rapid change. Plan discussed with: Patient, Other (RN) Visit Coding OBGYN Date of Service: Nov 11, 2024 Billing Provider: SONNY GROSS DO SENIOR PROGRAMMER Common Visit Codes: [id number] INP/OBS CARE(HIGH) SONNY GROSS DO Nov 11, 2024 20:06
[2024-11-11] MEDS: ePHEDrine SULFATE 50 MG/ML AMP IV ONE (20:15)
[2024-11-11] MEDS: ROPIVACAINE HCL 0 ML ONE (20:46)
[2024-11-11] MEDS: LACTATED RINGER'S 1,000 ML IV ONE (20:53)
[2024-11-11] MEDS: TERBUTALINE SULFATE 1 MG/ML 1ML VIAL SC ONE (21:26)
--- NOTE | 2024-11-11 21:50 | LDN2 ---
Labor and Delivery Note Date 11/11/24 Age 34 3 Para 3 EGA 39.4 wk Diagnosis GDMA2, induction of labor s/p Category 2 FHR in 2nd stage of labor Vaginal Delivery: VTX Vacuum Assisted: No Placenta: Spontaneous Sex: Female Weight Pending Apgars 7/8 Nuchal Cord Transected: No Amniotic Fluid: Clear Anesthesia NONE Episiotomy: No EBL 200 mL Labs Laboratory Tests 11/11/24 12:45: HIV (1&2) Antibody Negative 09/21/24 09:35: Hepatitis B Surface Antigen Negative, Rubella Antibody Positive Blood Bank 11/11/24 12:45: Blood Type O POSITIVE Complications NUCHAL CORD X 1 Comments/Significant Med Michelle Called to delivery room due to deep FHR decelerations x 6 mins I examined patient and was 10cm. Pushed x 2 with atraumatic delivery, nuchal cord x 1. Peds team present at delivery, Cord blood and cord gases obtained, results pending. Baby w/ apgars 7/8. Placenta spont. 3vc. EBL 200 ml Fundus firm Small abrasions, no sutures needed in vagina. Small < 2cm left labial hematoma, iced and observed, not expanding. Visit Coding OBGYN Date of Service: Nov 11, 2024 Billing Provider: SONNY GROSS DO IRRIGATOR SPRINKLING SYSTEM Common Visit Codes: PROCEDURE ONLY IRRIGATOR SPRINKLING SYSTEM Procedure Codes: [id number] OB CARE,VAG DELIVERY SONNY GROSS DO Nov 11, 2024 21:50
[2024-11-11] MEDS: LACT. RINGERS/OXYTOCIN 20UNITS 500 ML IV ONE (22:19)
[2024-11-12] MEDS: ACETAMINOPHEN 325 MG TAB PO PRN (01:05)
[2024-11-12 03:00] VITALS: BP 113/66; PULSE 64; RESP 14; TEMP 97.7; O2SAT 95
--- NOTE | 2024-11-12 03:54 | DVHPN2 ---
Progress Note Date Seen: Nov 12, 2024 Subjective PPD#1 s/p no acute complaints. GDMA2 Lochia mild. no pain. Voiding well vital signs See EHR medications Current Medications Medications Dose Ordered Sig/Rupesh Route Start Time Stop Time Status Last Admin Dose Admin Tawny Cabrera 1 pad PRN PRN TOP 11/11/24 12:15 11/11/24 17:24 1 PAD Sodium Lauryl Sulfate 240 ml PRN PRN TOP 11/11/24 12:15 11/11/24 17:24 240 ML Benzocaine 1 applic PRN PRN TOP 11/11/24 12:15 11/11/24 17:24 1 APPLIC Butorphanol Tartrate 1 mg Q4HPRN PRN IV 11/11/24 12:15 Butorphanol Tartrate 2 mg Q4HPRN PRN IV 11/11/24 12:15 Misoprostol 50 mcg Q4HPRN PRN PO 11/11/24 12:15 11/11/24 13:33 50 MCG Lidocaine HCl 20 ml ONCE PRN IJ 11/11/24 12:15 Diagnostic Test (Pha) 1 strip Q4HR 11/11/24 17:00 11/11/24 17:30 1 STRIP Lactated Ringer's 1,000 ml @ 125 mls/hr Q8H IV 11/11/24 17:15 Oxytocin 1,000 ml @ 6 ml/hr Q24H IV 11/11/24 17:15 11/11/24 17:30 6 ML/HR Terbutaline Sulfate 0.25 mg ONCE PRN SC 11/11/24 17:15 Ibuprofen 600 mg Q6HP PRN PO 11/11/24 22:30 UNV Acetaminophen 650 mg Q4HP PRN PO 11/11/24 22:30 11/12/24 01:05 650 MG laboratory and microbiology Laboratory Tests 11/11/24 12:45 Test 11/11/24 12:45 Range/Units Serum Glucose 105 74-106 mg/dL Objective O: AFVSS Chest: heart and lung sounds normal. Abd soft, non-tender, fundus firm, BS, no rebound or guarding, Ext Neg Homans, Non-tender, edema Lochia - minimal Labs Pending Assessment/Plan PPD#1 s/p at Term, GDMA2 Continue current care D/C planning after 24h Plan discussed with: Patient, Other (RN) Visit Coding OBGYN Date of Service: Nov 12, 2024 Billing Provider: SONNY GROSS DO MARKET PRESIDENT Common Visit Codes: [id number] INP/OBS CARE(MOD) SONNY GROSS DO Nov 12, 2024 03:54
[2024-11-12 06:40] VITALS: BP 123/75; PULSE 69; RESP 16; TEMP 97.7; O2SAT 96
[2024-11-12] MEDS: LACT. RINGERS/OXYTOCIN 20UNITS 500 ML IV ONE (06:41)
[2024-11-12] MEDS: IBUPROFEN 600 MG TAB PO PRN (12:00)
[2024-11-12 15:00] VITALS: BP 125/74; PULSE 80; RESP 18; TEMP 97.8; O2SAT 95
[2024-11-12 19:00] VITALS: BP 137/66; PULSE 69; RESP 18; TEMP 98; O2SAT 96
[2024-11-12 22:57] VITALS: BP 128/64; PULSE 64; RESP 16; TEMP 98; O2SAT 95
[2024-11-13] MEDS ORDERED: IBU600T PO (01:45)
--- NOTE | 2024-11-13 01:49 | DVHDS2 ---
Physician Discharge Progress N Final Diagnosis: GDMA2, Term delivered s/p Operations or Procedures: Operations or Procedures Induction of labor, Condition on Discharge: Stable Disposition: Home Discharge Instructions: Diet: Regular Activity: Light activity Activity comment: Pelvic rest x 6 weeks Follow Up/Referral: 2 wk [employer] [facility] Medications: Ibuprofen pRN Follow Up Care: Discharge Statement: "Patient was advised to return to the ER or call 911 if any headaches, dizziness, shortness of breath, chest pain, abdominal pain, bleeding, fevers, or worsening of medical condition. Patient was counseled about treatment plan, medications, possible side effects, patientverbalized understanding. All questions were answered to the best of my ability. This discharge took greater then 30 minutes in planning, reviewing documentation, counseling the patient, and discussing with other team members." Visit Coding OBGYN Date of Service: Nov 13, 2024 Billing Provider: SONNY GROSS DO DEBONER Common Visit Codes: 46054-ZZC/OBS DISCH DAY <30MIN SONNY GROSS DO Nov 13, 2024 01:48
[2024-11-13 02:19] LABS: Basophils # (auto) 0 10 ^3/uL (0-0.2); Basophils % (auto) 0.6 % (0.0-2.0); Eosinophils # (auto) 0.2 10 ^3/uL (0-0.8); Eosinophils % (auto) 1.9 % (0.0-7.0); Hematocrit 30.5 % (36.0-46.0); Hemoglobin 10.4 g/dL (12.2-16.2); Lymphocytes # (auto) 3.1 10 ^3/uL (0.4-5.4); Lymphocytes % (auto) 35.8 % (10.0-50.0); Mean Corpuscular Hemoglobin 29.7 pg (28.0-32.0); Mean Corpuscular Hgb Conc. 34.1 g/dL (32.0-36.0); Mean Corpuscular Volume 86.8 fL (80.0-100.0); Monocytes # (auto) 0.4 10 ^3/uL (0-1.3); Monocytes % (auto) 4.7 % (0.0-12.0); Neutrophils # (auto) 4.9 10 ^3/uL (1.6-8.6); Platelet Count (auto) 179 10^3/uL (140-450); Red Blood Cells 3.51 10^6/uL (4.0-5.20); Red Cell Distribution Width 14.9 % (11.8-14.3); White Blood Cell 8.6 10^3/uL (4.4-10.8)
[2024-11-13 03:15] VITALS: BP 134/78; PULSE 66; RESP 16; TEMP 97.6; O2SAT 99
[2024-11-13 06:43] VITALS: BP 124/80; PULSE 70; RESP 16; TEMP 97.7; O2SAT 99
== END 2024-11-13 10:50 | disposition home or self-care (01) | DRG 807 ==
LOC: LDRP 12:00
PROVIDERS: ADMIT Obstetrics & Gynecology; ATTEND Obstetrics & Gynecology
PROC: 10E0XZZ Delivery of Products of Conception, External Approach (ICD-10-PCS; principal; 2024-11-11)
DX: O24.425 Gestational diabetes mellitus in childbirth, controlled by oral hypoglycemic drugs (principal); Z37.0 Single live birth; O76 Abnormality in fetal heart rate and rhythm complicating labor and delivery; O69.81X0 Labor and delivery complicated by cord around neck, without compression, not applicable or unspecified; Z3A.39 39 weeks gestation of pregnancy; Z88.5 Allergy status to narcotic agent
CPT/HCPCS: 36415; 59409; 80053; 80307; 81001; 82948; 82962; 85025; 85610; 85730; 86703; 86780; 86803; 86850; 86900; 86901; 94760; 96360; 96361; 96365; G0378; J2590

== ENCOUNTER → 2024-12-18 | Outpatient (CLI) | payer SELFPAY ==
[~2024-12-18] MED LIST changes: +IBU600T PO
[2024-12-18 09:22] LABS: Basophils # (auto) 0 10 ^3/uL (0-0.2); Basophils % (auto) 0.4 % (0.0-2.0); Eosinophils # (auto) 0.2 10 ^3/uL (0-0.8); Eosinophils % (auto) 2.9 % (0.0-7.0); Hematocrit 39.8 % (36.0-46.0); Hemoglobin 13.3 g/dL (12.2-16.2); Lymphocytes # (auto) 2.8 10 ^3/uL (0.4-5.4); Mean Corpuscular Hemoglobin 28.6 pg (28.0-32.0); Mean Corpuscular Hgb Conc. 33.3 g/dL (32.0-36.0); Monocytes # (auto) 0.4 10 ^3/uL (0-1.3); Monocytes % (auto) 5.7 % (0.0-12.0); Neutrophils # (auto) 4.2 10 ^3/uL (1.6-8.6); Nucleated Red Blood Cells % 0.1 %; Platelet Count (auto) 208 10^3/uL (140-450); Red Blood Cells 4.63 10^6/uL (4.0-5.20); Red Cell Distribution Width 14.1 % (11.8-14.3); White Blood Cell 7.7 10^3/uL (4.4-10.8)
[2024-12-18 09:43] LABS: Albumin 4.7 g/dL (3.2-4.8); Alkaline Phosphatase 88 U/L (46-116); Anion Gap 10 (5-15); Aspartate Aminotransferase 33 U/L (13-40); BUN/Creatinine Ratio 15.9 (10.0-20.0); Blood Urea Nitrogen 13 mg/dL (9-23); Calcium 9.9 mg/dL (8.7-10.4); Carbon Dioxide 26 mmol/L (20-31); Chloride 105 mmol/L (98-107); Glucose 101 mg/dL (74-106); Potassium 4.5 mmol/L (3.5-5.1); Sodium 141 mmol/L (136-145); Total Protein 7.3 g/dL (5.7-8.2)
[2024-12-18 09:44] LABS: Bilirubin, Total 0.3 mg/dL (0.2-1.0)
[2024-12-18 09:47] LABS: Alanine Aminotransferase 123 U/L (7-40)
== END | disposition home or self-care (01) ==
LOC: LAB 08:32
DX: O24.439 Gestational diabetes mellitus in the puerperium, unspecified control (principal); Z3A.49 Greater than 42 weeks gestation of pregnancy
CPT/HCPCS: 36415; 80053; 82951; 83036; 85025